=== PATIENT | male | born 1970 | race Caucasian/White ===

== ENCOUNTER 2021-02-08 10:20 | Emergency (ER) | payer OTHER ==
[2021-02-08 10:29] VITALS: BP 129/70; PULSE 89; TEMP 97.8; BMI 21.7
[2021-02-08] MEDS ORDERED: DIPHTH,PERTUSS(ACELL),TET 0.5 ML DISP.SYRIN IM ONE ×2 (10:32→10:34)
[2021-02-08] MEDS ORDERED: IBUPROFEN 600 MG TABLET (FP) PO ONE ×2 (10:32→10:34)
== END 2021-02-08 11:05 | disposition home or self-care (01) ==
LOC: FER 10:20
PROC: 0HQ1XZZ Repair Face Skin, External Approach (ICD-10-PCS; principal; 2021-02-08)
PROC: 3E0234Z Introduction of Serum, Toxoid and Vaccine into Muscle, Percutaneous Approach (ICD-10-PCS; 2021-02-08)
DX: S01.81XA Laceration without foreign body of other part of head, initial encounter (principal)
CPT/HCPCS: 90715; 99284-25

== ENCOUNTER 2021-02-15 11:10 | Emergency (ER) | payer OTHER ==
[2021-02-15 11:34] VITALS: BP 123/75; PULSE 75; TEMP 98.1; BMI 21.7
== END 2021-02-15 11:35 | disposition home or self-care (01) ==
LOC: FER 11:10
DX: Z48.02 Encounter for removal of sutures (principal)
CPT/HCPCS: 99281-25

== ENCOUNTER 2021-10-10 07:41 | Observation (INO) | payer OTHER ==
[2021-10-10 07:46] VITALS: BMI 19.8
[2021-10-10] MEDS ORDERED: FAMOTIDINE 20 MG/50 ML IVPB 20 MG in PREMIX 50 IVPB ONE (08:09)
[2021-10-10] MEDS ORDERED: MAG HYDROX/AL HYDROX/SIMETH -MYLANTA- ORAL SUSPENSION PO ONE (08:09)
[2021-10-10] MEDS ORDERED: ONDANSETRON 4 MG/2 ML VIAL IVPB ONE (08:09)
[2021-10-10] MEDS ORDERED: SODIUM CHLORIDE 0.9% 500 ML INFUS.BAG IV ONE (08:09)
[2021-10-10] MEDS ORDERED: FAMOTIDINE 20 MG/50 ML IVPB 20 MG/50 ML MG IVPB ONE (08:14)
[2021-10-10] MEDS ORDERED: ONDANSETRON 4 MG/2 ML VIAL ONE (08:15)
[2021-10-10] MEDS ORDERED: MAG HYDROX/AL HYDROX/SIMETH 30 ML UNIT-DOSE CUP ONE (08:15)
[2021-10-10 08:40] LABS: ALBUMIN 4.1 g/dl (3.4-5.0); BILIRUBIN,TOTAL 4.1 mg/dl (0.2-1); CALCIUM 9.2 mg/dl (8.5-10); CREATININE 0.8 mg/dl (0.55-1.3); TOT PROT 6.5 g/dl (6.4-8.2)
[2021-10-10 09:51] LABS: BASO % 0.4 % (0-2.0); EOS % 0.7 % (0-4.5); HEMATOCRIT 43.1 % (35.4-49); LYMPH % 9.9 % (8-40); MCH 35.1 pg (25.7-33.7); MCHC 34.7 g/dl (32.0-35.9); MEAN CELL VOLUME 101.2 fl (80-96); MEAN PLT VOLUME 9.6 fl (7.5-11.1); MONO % 6.7 % (3.8-10.2); NEUT % 82.3 % (42.8-82.8); PLATELET COUNT 244 10^3/uL (134-434); RBC 4.26 M/mm3 (4.00-5.60); RDW 13.5 % (11.9-15.9)
[2021-10-10] MEDS ORDERED: POTASSIUM CHLORIDE TABS 20 MEQ TABLET.ER (FP) PO ONE ×2 (10:03→10:11)
[2021-10-10 16:36] LABS: INR 1.05 (0.83-1.09); PROTHROMBIN TIME (PATIENT) 12.1 SEC (9.7-13.0)
[2021-10-10 16:38] LABS: ACTIVATED PTT 27.1 SECONDS (25.2-36.5)
[2021-10-11 06:34] VITALS: BP 112/72; PULSE 73; TEMP 98.8
[2021-10-11 08:27] LABS: ALBUMIN 3.7 g/dl (3.4-5.0); BILIRUBIN,DIRECT 0.4 mg/dL (0.0-0.2); BILIRUBIN,TOTAL 3.1 mg/dl (0.2-1); CREATININE 0.8 mg/dl (0.55-1.3); MAGNESIUM 2.1 mg/dL (1.8-2.4); TOT PROT 5.8 g/dl (6.4-8.2)
[2021-10-11 10:47] LABS: BASO % 1.5 % (0-2.0); EOS % 1.6 % (0-4.5); HEMATOCRIT 42.8 % (35.4-49); HEMOGLOBIN 14.7 GM/dL (11.7-16.9); LYMPH % 9.1 % (8-40); MCH 34.8 pg (25.7-33.7); MCHC 34.4 g/dl (32.0-35.9); MEAN CELL VOLUME 101.1 fl (80-96); MEAN PLT VOLUME 9.3 fl (7.5-11.1); NEUT % 79.8 % (42.8-82.8); PLATELET COUNT 228 10^3/uL (134-434); RBC 4.24 M/mm3 (4.00-5.60); RDW 13.4 % (11.9-15.9); WHITE BLOOD COUNT 6.4 K/mm3 (4.0-10.0)
== END 2021-10-11 11:36 | disposition home or self-care (01) ==
LOC: FER 07:41 → UNDOADMOB 11:01 → FM/S 11:01 → INTOOBSV 11:01 → FM/S 20:29
PROVIDERS: ADMIT Internal Medicine; ATTEND Nurse Practitioner Family
PROC: 3E033GC Introduction of Other Therapeutic Substance into Peripheral Vein, Percutaneous Approach (ICD-10-PCS; principal; 2021-10-10)
PROC: 3E0337Z Introduction of Electrolytic and Water Balance Substance into Peripheral Vein, Percutaneous Approach (ICD-10-PCS; 2021-10-10)
DX: K90.0 Celiac disease (principal); R00.0 Tachycardia, unspecified; R00.2 Palpitations; G89.29 Other chronic pain; R79.89 Other specified abnormal findings of blood chemistry; R10.11 Right upper quadrant pain
CPT/HCPCS: 36415; 74177-TC; 76705-TC; 80053; 81003; 82248; 83036; 83690; 83735; 85025; 85610; 85730; 93005; 93306-TC; 99285-25; C9803; G0378; U0003; U0005

== ENCOUNTER 2022-10-14 14:31 | Emergency (ER) | payer OTHER ==
[2022-10-14 14:39] VITALS: RESP 18; BMI 19.1
[2022-10-14] MEDS ORDERED: SODIUM CHLORIDE 0.9% 500 ML INFUS.BAG IV ONE ×3 (14:55→17:46)
[2022-10-14] MEDS ORDERED: LORazepam 0.5 MG TABLET PO ONE (15:09)
[2022-10-14] MEDS ORDERED: LORazepam 0.5 MG TABLET ONE (15:39)
[2022-10-14 15:45] VITALS: TEMP 98.3
[2022-10-14 15:51] LABS: HEMOGLOBIN 15.1 G/dL (11.7-16.9); MCH 32.5 pg (25.7-33.7); MCHC 33.4 g/dl (32.0-35.9); MEAN CELL VOLUME 97.1 fl (80-96); MEAN PLT VOLUME 9.7 fl (7.5-11.1); PLATELET COUNT 212.1 10^3/uL (134-434); RBC 4.63 10^6/uL (4.00-5.60); RDW 12.6 % (11.9-15.9); WHITE BLOOD COUNT 13.9 10^3/uL (4.0-10.8)
[2022-10-14 17:01] LABS: CALCIUM 8.8 mg/dl (8.5-10); TOT PROT 6.2 g/dl (6.4-8.2)
[2022-10-14 17:05] LABS: PLATELET ESTIMATE ADEQUATE
[2022-10-14 18:10] VITALS: BP 115/65; PULSE 95
== END 2022-10-14 19:01 | disposition home or self-care (01) ==
LOC: FER 14:31
DX: R00.2 Palpitations (principal)
CPT/HCPCS: 36415; 80053; 84439; 84443; 85025; 93005; 99284-25

== ENCOUNTER 2024-04-19 15:02 | Emergency (ER) | payer OTHER ==
[2024-04-19 15:21] VITALS: BP 113/73; PULSE 95; RESP 18; TEMP 97; BMI 20.9
[2024-04-19] MEDS ORDERED: FLUORESCEIN NA 1 EA STRIP ONE (17:11)
== END 2024-04-19 18:41 | disposition home or self-care (01) ==
LOC: JER 15:02 → JERFT 15:02
DX: S05.01XA Injury of conjunctiva and corneal abrasion without foreign body, right eye, initial encounter (principal); W22.8XXA Striking against or struck by other objects, initial encounter
CPT/HCPCS: 99283-25

== ENCOUNTER 2024-05-11 08:06 | Day surgery (SDC) | payer OTHER ==
[2024-05-05 10:33] VITALS: BMI 20.9
[2024-05-11 08:48] LABS: HEMATOCRIT 49.5 % (35.4-49); HEMOGLOBIN 16.2 G/dL (11.7-16.9); MCHC 32.7 g/dl (32.0-35.9); MEAN PLT VOLUME 7.8 fl (7.5-11.1); PLATELET COUNT 279.8 10^3/uL (134-434); RDW 13.7 % (11.9-15.9); WHITE BLOOD COUNT 3.7 10^3/uL (4.0-10.8)
[2024-05-11 09:34] LABS: ALBUMIN 4.3 g/dl (3.4-5.0); BILIRUBIN,TOTAL 1.3 mg/dl (0.2-1); CALCIUM 9.5 mg/dl (8.5-10.1); POTASSIUM 4.3 mmol/L (3.5-5.1); TOT PROT 6.7 g/dl (6.4-8.2)
[2024-05-11] MEDS ORDERED: PROPOFOL 20 ML ONE (09:36)
[2024-05-11] MEDS ORDERED: SUCCINYLCHOLINE CHLORIDE 200 MG/10 ML SYRINGE ONE (09:36)
[2024-05-11] MEDS ORDERED: ONDANSETRON 4 MG/2 ML VIAL ONE (09:37)
[2024-05-11] MEDS ORDERED: KETOROLAC TROMETHAMINE 30 MG/1 ML VIAL ONE (09:37)
[2024-05-11] MEDS ORDERED: KETAMINE HCL 200 MG/20 ML VIAL ONE (10:20)
[2024-05-11 11:34] VITALS: RESP 16
[2024-05-11 12:20] VITALS: TEMP 97.3
[2024-05-11 12:22] VITALS: BP 122/76; PULSE 72
== END 2024-05-11 12:15 | disposition home or self-care (01) ==
LOC: FECT 08:06
PROVIDERS: ATTEND Student in an Organized Health Care Education/Training Program
PROC: GZB4ZZZ Other Electroconvulsive Therapy (ICD-10-PCS; principal; 2024-05-11 10:27)
DX: F32.A Depression, unspecified (principal)
CPT/HCPCS: 36415; 80053; 85027; 90870; 93005; 94760

== ENCOUNTER 2024-05-12 06:25 | Day surgery (SDC) | payer OTHER ==
[2024-05-10 12:51] VITALS: BMI 20.9
[2024-05-12] MEDS ORDERED: KETAMINE HCL 100 MG/ML - 5ML VIAL ONE (07:50)
[2024-05-12] MEDS ORDERED: KETOROLAC TROMETHAMINE 30 MG/1 ML VIAL ONE (07:58)
[2024-05-12] MEDS ORDERED: ONDANSETRON 4 MG/2 ML VIAL ONE (07:58)
[2024-05-12 11:37] VITALS: TEMP 97.7
[2024-05-12 11:46] VITALS: BP 132/85; PULSE 62; RESP 16
== END 2024-05-12 09:40 | disposition home or self-care (01) ==
LOC: FECT 06:25
PROVIDERS: ATTEND Student in an Organized Health Care Education/Training Program
PROC: GZB4ZZZ Other Electroconvulsive Therapy (ICD-10-PCS; principal; 2024-05-12 08:05)
DX: F32.A Depression, unspecified (principal)
CPT/HCPCS: 90870; 94760

== ENCOUNTER 2024-05-16 08:41 | Day surgery (SDC) | payer OTHER ==
[2024-05-10 12:55] VITALS: BMI 20.9
[2024-05-16 08:56] VITALS: RESP 16
[2024-05-16] MEDS ORDERED: KETAMINE HCL 100 MG/ML - 5ML VIAL ONE (10:00)
[2024-05-16] MEDS ORDERED: PROPOFOL 20 ML ONE (10:07)
[2024-05-16] MEDS ORDERED: ONDANSETRON 4 MG/2 ML VIAL ONE (10:07)
[2024-05-16] MEDS ORDERED: SUCCINYLCHOLINE CHLORIDE 200 MG/10 ML SYRINGE ONE (10:07)
[2024-05-16 13:15] VITALS: BP 142/74; PULSE 84; TEMP 97.6
== END 2024-05-16 12:15 | disposition home or self-care (01) ==
LOC: FECT 08:41
PROVIDERS: ATTEND Student in an Organized Health Care Education/Training Program
PROC: GZB4ZZZ Other Electroconvulsive Therapy (ICD-10-PCS; principal; 2024-05-16 10:13)
DX: F32.A Depression, unspecified (principal)
CPT/HCPCS: 90870; 94760

== ENCOUNTER 2024-05-18 08:29 | Day surgery (SDC) | payer OTHER ==
[2024-05-10 13:29] VITALS: BMI 20.9
[2024-05-18] MEDS ORDERED: KETAMINE HCL 100 MG/ML - 5ML VIAL ONE (10:25)
[2024-05-18] MEDS ORDERED: ONDANSETRON 4 MG/2 ML VIAL ONE (10:34)
[2024-05-18] MEDS ORDERED: SUCCINYLCHOLINE CHLORIDE 200 MG/10 ML SYRINGE ONE (10:34)
[2024-05-18] MEDS ORDERED: KETOROLAC TROMETHAMINE 30 MG/1 ML VIAL ONE (10:34)
[2024-05-18] MEDS ORDERED: PROPOFOL 20 ML ONE (10:36)
[2024-05-18 12:35] VITALS: RESP 18; TEMP 98
[2024-05-18 12:36] VITALS: BP 129/86; PULSE 86
== END 2024-05-18 12:45 | disposition home or self-care (01) ==
LOC: FECT 08:29
PROVIDERS: ATTEND Student in an Organized Health Care Education/Training Program
PROC: GZB4ZZZ Other Electroconvulsive Therapy (ICD-10-PCS; principal; 2024-05-18 10:40)
DX: F32.A Depression, unspecified (principal)
CPT/HCPCS: 90870; 94760

== ENCOUNTER 2024-05-19 12:12 | Day surgery (SDC) | payer OTHER ==
[2024-05-12 13:26] VITALS: BMI 20.9
[2024-05-19] MEDS ORDERED: KETAMINE HCL 100 MG/ML - 5ML VIAL ONE (14:01)
[2024-05-19 15:01] VITALS: RESP 16
[2024-05-19 15:12] VITALS: TEMP 97.8
[2024-05-19 15:30] VITALS: BP 140/89; PULSE 78
== END 2024-05-19 15:54 | disposition home or self-care (01) ==
LOC: FECT 12:12
PROVIDERS: ATTEND Student in an Organized Health Care Education/Training Program
PROC: GZB4ZZZ Other Electroconvulsive Therapy (ICD-10-PCS; principal; 2024-05-19 14:26)
DX: F32.A Depression, unspecified (principal)
CPT/HCPCS: 90870; 94760

== ENCOUNTER 2024-05-23 09:26 | Day surgery (SDC) | payer OTHER ==
[2024-05-15 14:32] VITALS: BMI 20.9
[2024-05-23] MEDS ORDERED: KETAMINE HCL 100 MG/ML - 5ML VIAL ONE (11:07)
[2024-05-23 11:43] VITALS: RESP 16
[2024-05-23 12:24] VITALS: TEMP 98.7
[2024-05-23 14:21] VITALS: BP 146/75; PULSE 84
== END 2024-05-23 13:40 | disposition home or self-care (01) ==
LOC: FECT 09:26
PROVIDERS: ATTEND Student in an Organized Health Care Education/Training Program
PROC: GZB4ZZZ Other Electroconvulsive Therapy (ICD-10-PCS; principal; 2024-05-23 11:19)
DX: F32.A Depression, unspecified (principal)
CPT/HCPCS: 90870; 94760

== ENCOUNTER 2024-05-25 08:59 | Day surgery (SDC) | payer OTHER ==
[2024-05-16 16:12] VITALS: BMI 23.8
[2024-05-25 09:15] VITALS: RESP 18
[2024-05-25] MEDS ORDERED: KETAMINE HCL 100 MG/ML - 5ML VIAL ONE (09:52)
[2024-05-25 11:15] VITALS: TEMP 98
[2024-05-25 11:51] VITALS: BP 141/87; PULSE 77
== END 2024-05-25 12:00 | disposition home or self-care (01) ==
LOC: FECT 08:59
PROVIDERS: ATTEND Psychiatry & Neurology Psychiatry
PROC: GZB4ZZZ Other Electroconvulsive Therapy (ICD-10-PCS; principal; 2024-05-25 10:20)
DX: F32.A Depression, unspecified (principal)
CPT/HCPCS: 90870; 94760

== ENCOUNTER 2024-05-26 08:29 | Day surgery (SDC) | payer OTHER ==
[2024-05-15 15:19] VITALS: BMI 20.9
[2024-05-26] MEDS ORDERED: KETAMINE HCL 100 MG/ML - 5ML VIAL ONE (10:35)
[2024-05-26 11:51] VITALS: BP 128/79; PULSE 96; RESP 18; TEMP 98.9
== END 2024-05-26 12:15 | disposition home or self-care (01) ==
LOC: FECT 08:29
PROVIDERS: ATTEND Student in an Organized Health Care Education/Training Program
PROC: GZB4ZZZ Other Electroconvulsive Therapy (ICD-10-PCS; principal; 2024-05-26 10:47)
DX: F32.A Depression, unspecified (principal)
CPT/HCPCS: 90870; 94760

== ENCOUNTER 2024-05-30 08:56 | Day surgery (SDC) | payer OTHER ==
[2024-05-22 15:21] VITALS: BMI 20.9
[2024-05-30] MEDS ORDERED: KETAMINE HCL 100 MG/ML - 5ML VIAL ONE (10:31)
[2024-05-30 11:50] VITALS: PULSE 82; RESP 16; TEMP 98.6
[2024-05-30 12:28] VITALS: BP 144/87
== END 2024-05-30 12:45 | disposition home or self-care (01) ==
LOC: FECT 08:56
PROVIDERS: ATTEND Student in an Organized Health Care Education/Training Program
PROC: GZB4ZZZ Other Electroconvulsive Therapy (ICD-10-PCS; principal; 2024-05-30 10:43)
DX: F32.A Depression, unspecified (principal)
CPT/HCPCS: 90870; 94760

== ENCOUNTER 2024-06-01 08:27 | Day surgery (SDC) | payer OTHER ==
[2024-05-23 09:38] VITALS: BMI 20.9
[2024-06-01] MEDS ORDERED: KETAMINE HCL 100 MG/ML - 5ML VIAL ONE (09:44)
[2024-06-01 10:33] VITALS: TEMP 98.7
[2024-06-01 11:29] VITALS: BP 130/81; PULSE 79; RESP 18
== END 2024-06-01 11:30 | disposition home or self-care (01) ==
LOC: FECT 08:27
PROVIDERS: ATTEND Psychiatry & Neurology Psychiatry
PROC: GZB4ZZZ Other Electroconvulsive Therapy (ICD-10-PCS; principal; 2024-06-01 09:58)
DX: F32.A Depression, unspecified (principal)
CPT/HCPCS: 90870; 94760

== ENCOUNTER 2024-06-02 07:24 | Day surgery (SDC) | payer OTHER ==
[2024-05-25 15:09] VITALS: BMI 23.8
[~2024-06-02 07:24] MED LIST: ONDANSETRON 4 MG/2 ML VIAL IVPUSH PRN
[2024-06-02] MEDS ORDERED: LACTATED RINGERS SOLUTION 1,000 ML IV SCH (07:30)
[2024-06-02] MEDS ORDERED: KETAMINE HCL 100 MG/ML - 5ML VIAL ONE (09:08)
[2024-06-02 09:52] VITALS: RESP 16
[2024-06-02 10:05] VITALS: TEMP 97.8
[2024-06-02 10:41] VITALS: BP 134/77; PULSE 84
== END 2024-06-02 11:05 | disposition home or self-care (01) ==
LOC: FECT 07:24
PROVIDERS: ATTEND Student in an Organized Health Care Education/Training Program
PROC: GZB4ZZZ Other Electroconvulsive Therapy (ICD-10-PCS; principal; 2024-06-02 09:13)
DX: F32.A Depression, unspecified (principal)
CPT/HCPCS: 90870; 94760

== ENCOUNTER → 2024-06-06 | Day surgery (SDC) | payer OTHER ==
[2024-05-29 08:13] VITALS: BMI 20.9
[~2024-06-06] MED LIST changes: +KETAMINE HCL 100 MG/ML - 5ML VIAL ONE; -ONDANSETRON 4 MG/2 ML VIAL IVPUSH PRN
[2024-06-06 11:44] VITALS: PULSE 84
[2024-06-06 11:48] VITALS: BP 134/74; RESP 16; TEMP 98.1
== END | disposition home or self-care (01) ==
LOC: FECT 09:28
PROVIDERS: ATTEND Student in an Organized Health Care Education/Training Program
PROC: GZB4ZZZ Other Electroconvulsive Therapy (ICD-10-PCS; principal; 2024-06-06 10:53)
DX: F32.A Depression, unspecified (principal)
CPT/HCPCS: 90870; 94760

== ENCOUNTER 2024-06-09 06:10 | Day surgery (SDC) | payer OTHER ==
[2024-06-06 15:29] VITALS: BMI 20.9
[2024-06-09 06:26] VITALS: RESP 16
[2024-06-09 09:58] VITALS: TEMP 97.4
[2024-06-09 11:28] VITALS: BP 136/88; PULSE 86
== END 2024-06-09 11:10 | disposition home or self-care (01) ==
LOC: FECT 06:10 → FASU 06:10 → FECT 11:10
PROVIDERS: ATTEND Student in an Organized Health Care Education/Training Program
PROC: GZB4ZZZ Other Electroconvulsive Therapy (ICD-10-PCS; principal; 2024-06-09 09:02)
DX: F32.A Depression, unspecified (principal)
CPT/HCPCS: 90870; 94760

== ENCOUNTER 2024-06-13 12:20 | Day surgery (SDC) | payer OTHER ==
[2024-06-12 06:43] VITALS: BMI 20.9
[2024-06-13] MEDS ORDERED: KETAMINE HCL 100 MG/ML - 5ML VIAL ONE (13:39)
[2024-06-13 15:20] VITALS: TEMP 98.6
[2024-06-13 15:55] VITALS: PULSE 86; RESP 18
[2024-06-13 16:00] VITALS: BP 132/84
== END 2024-06-13 16:00 | disposition home or self-care (01) ==
LOC: FECT 12:20
PROVIDERS: ATTEND Student in an Organized Health Care Education/Training Program
PROC: GZB4ZZZ Other Electroconvulsive Therapy (ICD-10-PCS; principal; 2024-06-13 13:58)
DX: F32.A Depression, unspecified (principal)
CPT/HCPCS: 90870; 94760

== ENCOUNTER → 2024-06-16 | Day surgery (SDC) | payer OTHER ==
[2024-06-14 13:18] VITALS: BMI 20.9
[2024-06-16 13:36] VITALS: RESP 16
[2024-06-16 13:39] VITALS: TEMP 98.6
[2024-06-16 13:59] VITALS: BP 140/90; PULSE 90
== END | disposition home or self-care (01) ==
LOC: FECT 10:25
PROVIDERS: ATTEND Student in an Organized Health Care Education/Training Program
PROC: GZB4ZZZ Other Electroconvulsive Therapy (ICD-10-PCS; principal; 2024-06-16 12:57)
DX: F32.A Depression, unspecified (principal)
CPT/HCPCS: 90870; 94760

== ENCOUNTER 2024-06-20 10:56 | Day surgery (SDC) | payer OTHER ==
[2024-06-16 16:34] VITALS: BMI 20.9
[2024-06-20 14:01] VITALS: PULSE 86; RESP 18; TEMP 98.7
[2024-06-20 14:29] VITALS: BP 140/85
== END 2024-06-20 14:50 | disposition home or self-care (01) ==
LOC: FECT 10:56
PROVIDERS: ATTEND Student in an Organized Health Care Education/Training Program
PROC: GZB4ZZZ Other Electroconvulsive Therapy (ICD-10-PCS; principal; 2024-06-20 12:00)
DX: F32.A Depression, unspecified (principal)
CPT/HCPCS: 90870; 94760

== ENCOUNTER 2024-06-23 06:31 | Day surgery (SDC) | payer OTHER ==
[2024-06-20 14:12] VITALS: BMI 20.9
[2024-06-23 11:01] VITALS: RESP 18; TEMP 97.9
[2024-06-23 11:09] VITALS: BP 138/88; PULSE 89
== END 2024-06-23 10:45 | disposition home or self-care (01) ==
LOC: FECT 06:31
PROVIDERS: ATTEND Student in an Organized Health Care Education/Training Program
PROC: GZB4ZZZ Other Electroconvulsive Therapy (ICD-10-PCS; principal; 2024-06-23 09:06)
DX: F32.A Depression, unspecified (principal)
CPT/HCPCS: 90870; 94760

== ENCOUNTER 2024-06-27 11:57 | Day surgery (SDC) | payer OTHER ==
[2024-06-27 12:39] VITALS: BMI 21.9
[2024-06-27 14:37] LABS: HEMATOCRIT 46.7 % (35.4-49); HEMOGLOBIN 15.2 G/dL (11.7-16.9); MCH 36.4 pg (25.7-33.7); MCHC 32.5 g/dl (32.0-35.9); MEAN CELL VOLUME 111.9 fl (80-96); MEAN PLT VOLUME 7.8 fl (7.5-11.1); PLATELET COUNT 256.7 10^3/uL (134-434); RBC 4.17 10^6/uL (4.00-5.60); RDW 13.4 % (11.9-15.9); WHITE BLOOD COUNT 5.9 10^3/uL (4.0-10.8)
[2024-06-27 14:42] LABS: ALBUMIN 4.4 g/dl (3.4-5.0); BILIRUBIN,TOTAL 1.7 mg/dl (0.2-1); CALCIUM 9.3 mg/dl (8.5-10.1); CREATININE 0.8 mg/dl (0.6-1.3); TOT PROT 6.5 g/dl (6.4-8.2)
[2024-06-27 14:42] LABS: PLATELET ESTIMATE ADEQUATE
[2024-06-27 16:35] VITALS: BP 122/89; PULSE 89; RESP 18; TEMP 98.2
== END 2024-06-27 15:50 | disposition home or self-care (01) ==
LOC: FECT 11:57
PROVIDERS: ATTEND Student in an Organized Health Care Education/Training Program
PROC: GZB4ZZZ Other Electroconvulsive Therapy (ICD-10-PCS; principal; 2024-06-27 14:21)
DX: F32.A Depression, unspecified (principal)
CPT/HCPCS: 36415; 80053; 85025; 90870; 94760

== ENCOUNTER 2024-06-30 06:56 | Day surgery (SDC) | payer OTHER ==
[2024-06-28 11:36] VITALS: BMI 22.2
[2024-06-30] MEDS ORDERED: KETAMINE HCL 100 MG/ML - 5ML VIAL ONE (07:44)
[2024-06-30 09:04] VITALS: TEMP 97.1
[2024-06-30 10:04] VITALS: BP 122/79; PULSE 69; RESP 16
== END 2024-06-30 10:05 | disposition home or self-care (01) ==
LOC: FECT 06:56
PROVIDERS: ATTEND Student in an Organized Health Care Education/Training Program
PROC: GZB4ZZZ Other Electroconvulsive Therapy (ICD-10-PCS; principal; 2024-06-30 08:01)
DX: F32.A Depression, unspecified (principal)
CPT/HCPCS: 90870; 94760

== ENCOUNTER 2024-07-04 11:27 | Day surgery (SDC) | payer OTHER ==
[2024-06-30 16:26] VITALS: BMI 22.2
[2024-07-04] MEDS ORDERED: KETAMINE HCL 100 MG/ML - 5ML VIAL ONE (13:52)
[2024-07-04] MEDS ORDERED: PROPOFOL 20 ML ONE (14:00)
[2024-07-04 15:05] VITALS: TEMP 97.2
[2024-07-04 16:09] VITALS: BP 128/76; PULSE 76; RESP 18
== END 2024-07-04 16:13 | disposition home or self-care (01) ==
LOC: FECT 11:27
PROVIDERS: ATTEND Student in an Organized Health Care Education/Training Program
PROC: GZB4ZZZ Other Electroconvulsive Therapy (ICD-10-PCS; principal; 2024-07-04 14:06)
DX: F32.A Depression, unspecified (principal)
CPT/HCPCS: 90870; 94760

== ENCOUNTER 2024-07-07 06:57 | Day surgery (SDC) | payer OTHER ==
[2024-07-05 13:43] VITALS: BMI 22.2
[2024-07-07] MEDS ORDERED: KETAMINE HCL 100 MG/ML - 5ML VIAL ONE (08:04)
[2024-07-07 08:45] VITALS: RESP 16
[2024-07-07 09:36] VITALS: TEMP 98
[2024-07-07 10:10] VITALS: BP 139/96; PULSE 100
== END 2024-07-07 09:55 | disposition home or self-care (01) ==
LOC: FECT 06:57
PROVIDERS: ATTEND Student in an Organized Health Care Education/Training Program
PROC: GZB4ZZZ Other Electroconvulsive Therapy (ICD-10-PCS; principal; 2024-07-07 08:26)
DX: F32.A Depression, unspecified (principal)
CPT/HCPCS: 90870; 94760

== ENCOUNTER 2024-07-11 09:26 | Day surgery (SDC) | payer OTHER ==
[2024-07-07 12:36] VITALS: BMI 22.2
[2024-07-11] MEDS ORDERED: KETAMINE HCL 100 MG/ML - 5ML VIAL ONE (11:03)
[2024-07-11 11:45] VITALS: TEMP 98.5
[2024-07-11 12:34] VITALS: BP 139/79; PULSE 89; RESP 18
== END 2024-07-11 12:35 | disposition home or self-care (01) ==
LOC: FECT 09:26
PROVIDERS: ATTEND Student in an Organized Health Care Education/Training Program
PROC: GZB4ZZZ Other Electroconvulsive Therapy (ICD-10-PCS; principal; 2024-07-11 11:22)
DX: F32.A Depression, unspecified (principal)
CPT/HCPCS: 90870; 94760

== ENCOUNTER 2024-07-14 09:30 | Day surgery (SDC) | payer OTHER ==
[2024-07-11 15:48] VITALS: BMI 22.2
[2024-07-14] MEDS ORDERED: KETAMINE HCL 100 MG/ML - 5ML VIAL ONE (10:54)
[2024-07-14 12:25] VITALS: RESP 20; TEMP 98.7
[2024-07-14 12:34] VITALS: BP 116/74; PULSE 82
== END 2024-07-14 12:40 | disposition home or self-care (01) ==
LOC: FECT 09:30
PROVIDERS: ATTEND Student in an Organized Health Care Education/Training Program
PROC: GZB4ZZZ Other Electroconvulsive Therapy (ICD-10-PCS; principal; 2024-07-14 11:14)
DX: F32.A Depression, unspecified (principal)
CPT/HCPCS: 90870; 94760

== ENCOUNTER 2024-07-18 09:30 | Day surgery (SDC) | payer OTHER ==
[2024-07-14 16:13] VITALS: BMI 22.2
[2024-07-18] MEDS ORDERED: KETAMINE HCL 100 MG/ML - 5ML VIAL ONE (11:16)
[2024-07-18] MEDS ORDERED: PROPOFOL 20 ML ONE (11:18)
[2024-07-18 12:22] VITALS: RESP 18
[2024-07-18 13:43] VITALS: BP 129/77; PULSE 88; TEMP 98.4
== END 2024-07-18 14:00 | disposition home or self-care (01) ==
LOC: FECT 09:30
PROVIDERS: ATTEND Student in an Organized Health Care Education/Training Program
PROC: GZB4ZZZ Other Electroconvulsive Therapy (ICD-10-PCS; principal; 2024-07-18 11:26)
DX: F32.A Depression, unspecified (principal)
CPT/HCPCS: 90870; 94760

== ENCOUNTER 2024-07-21 08:29 | Day surgery (SDC) | payer OTHER ==
[2024-07-20 07:53] VITALS: BMI 22.2
[2024-07-21 11:10] VITALS: PULSE 79; RESP 16; TEMP 98.6
[2024-07-21 11:32] VITALS: BP 120/82
== END 2024-07-21 12:03 | disposition home or self-care (01) ==
LOC: FECT 08:29
PROVIDERS: ATTEND Psychiatry & Neurology Psychiatry
PROC: GZB4ZZZ Other Electroconvulsive Therapy (ICD-10-PCS; principal; 2024-07-21 10:24)
DX: F33.2 Major depressive disorder, recurrent severe without psychotic features (principal)
CPT/HCPCS: 90870; 94760

== ENCOUNTER 2024-08-02 07:30 | Day surgery (SDC) | payer OTHER ==
[2024-08-01 06:01] VITALS: BMI 22.2
[2024-08-02] MEDS ORDERED: PROPOFOL 20 ML ONE (09:20)
[2024-08-02] MEDS ORDERED: SUCCINYLCHOLINE CHLORIDE 200 MG/10 ML SYRINGE ONE (09:20)
[2024-08-02] MEDS ORDERED: KETAMINE HCL 100 MG/ML - 5ML VIAL ONE (09:20)
[2024-08-02] MEDS ORDERED: KETOROLAC TROMETHAMINE 30 MG/1 ML VIAL ONE (09:21)
[2024-08-02 10:24] VITALS: RESP 16
[2024-08-02 10:26] VITALS: PULSE 84; TEMP 98.4
[2024-08-02 11:26] VITALS: BP 122/73
== END 2024-08-02 11:10 | disposition home or self-care (01) ==
LOC: FECT 07:30
PROVIDERS: ATTEND Student in an Organized Health Care Education/Training Program
PROC: GZB4ZZZ Other Electroconvulsive Therapy (ICD-10-PCS; principal; 2024-08-02 09:27)
DX: F32.A Depression, unspecified (principal)
CPT/HCPCS: 90870; 94760

== ENCOUNTER 2024-08-14 08:42 | Day surgery (SDC) | payer OTHER ==
[2024-08-14 08:54] VITALS: BMI 22.2
[2024-08-14 11:21] VITALS: RESP 20; TEMP 97.7
[2024-08-14 11:26] VITALS: BP 140/82; PULSE 88
== END 2024-08-14 11:15 | disposition home or self-care (01) ==
LOC: FECT 08:42
PROVIDERS: ATTEND Student in an Organized Health Care Education/Training Program
PROC: GZB4ZZZ Other Electroconvulsive Therapy (ICD-10-PCS; principal; 2024-08-14 09:47)
DX: F33.2 Major depressive disorder, recurrent severe without psychotic features (principal)
CPT/HCPCS: 90870; 94760